=== PATIENT | male | born 1975 | race Caucasian/White ===

== ENCOUNTER 2024-01-20 15:06 | Outpatient (AMB) | payer OTHER, SELFPAY ==
--- NOTE | 2024-01-20 15:07 | MHC.OFFVIS ---
Vital Signs 01/20/24 15:19 Weight 178 lb BP 130/85 Blood Pressure Location Rt brachial Position Sitting Pulse 84 Intake Visit Reasons: Gallstone Intake Note: This patient was referred by for an assessment for gallstones. Pt c/o; reports no complaints. 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 You do have his records show that he had an ultrasound of the abdomen in July,. He is uncertain as to the reason why this was done. This showed cholelithiasis at that time. He says he really never had any significant right upper quadrant pain. He says that he did have epigastric pain and lower sternal pain last September, while he was in [place]. He says that this may have happened after a very heavy meal. He says he went to the ER that time. He does not think he had an ultrasound then. He states that he still does not think he has right upper quadrant pain. He does not seem to have any GI complaints There are no imaging studies available here at [facility]. [facility], [facility] Medical History Gallstones Surgical History History of back surgery Social History Alcohol intake: never Patient Tobacco Use Status: Never used Tobacco Review of Systems Const Denies chills and Denies fever(s) Card Denies chest pain, Denies dyspnea and Denies dyspnea on exertion Resp Denies cough, Denies dyspnea and Denies dyspnea on exertion GI Denies hematochezia and Denies change in bowel habits Denies hematuria and Denies difficulty urinating Musc Denies back pain and Denies limited range of motion Neuro Denies focal weakness and Denies convulsions Psych Denies depression and Denies mood swings Physical Exam Const General: comfortable and no acute distress Orientation/consciousness: patient oriented x3 Neck Neck: Yes no lymphadenopathy Resp Auscultation: clear to auscultation bilaterally Cardio Rhythm: regular rhythm GI Palpation (GI): Soft to palpation, nontender and no guarding Neuro General: patient oriented x3 Assessment & Plan Assessment & Plan (1) Gallstones: Code(s): K80.20 - Calculus of gallbladder without cholecystitis without obstruction Category: Medical Plan: He has gallstones on a previous abdominal ultrasound July, in [place]. This was described as ?incidental? on the report. I will repeat his ultrasound although it does not appear that he has significant symptoms at this time. He denies any right upper quadrant pain but does describe episode of epigastric pain while in [place] after a heavy meal. I did explain to him the technique of laparoscopic cholecystectomy and possible open cholecystectomy. I discussed the risks including but not limited to bleeding, infections, injury to other organs including bowel, liver and the bile duct, retained stones, bile leak, as well as the benefits and alternatives. I will see him in the office after his ultrasound and review his options if he does have gallstones. He is comfortable with the plan. Orders: Orders abdomen limited Today K80.20 - Calculus of gallbladder without cholecystitis without obstruction
[2024-01-20 15:19] VITALS: BP 130/85; PULSE 84
== END 2024-01-20 15:35 | disposition home or self-care (01) ==
LOC: HO.HGS 15:06
PROVIDERS: PCP Pediatrics; Visit Provider Surgery
DX: K80.20 Calculus of gallbladder without cholecystitis without obstruction (principal)
CPT/HCPCS: 99203

== ENCOUNTER → 2024-01-20 15:06 | Outpatient (BNVA) | payer OTHER, SELFPAY | PROVIDERS: PCP Pediatrics; Visit Provider Surgery | DX: K80.20 Calculus of gallbladder without cholecystitis without obstruction (principal) | CPT/HCPCS: 99202 ==

== ENCOUNTER 2024-02-14 08:53 | Outpatient (REF) | payer OTHER, SELFPAY ==
--- NOTE | ~2024-02-14 | US_ITS ---
EXAMINATION: US ABDOMEN LIMITED CLINICAL INFORMATION: Calculus of gallbladder without cholecystitis without obstruction. COMPARISON: None available. TECHNIQUE: Real-time imaging of the right upper quadrant abdominal viscera. FINDINGS: PANCREAS: The pancreas appears unremarkable, without masses or ductal dilatation, with the exception of the tail which is obscured by bowel gas. LIVER: The liver is normal in size. The liver contour is normal. There is mildly increased liver parenchymal echogenicity suggesting hepatic steatosis. No focal hepatic lesion. There is no intrahepatic biliary duct dilatation seen. GALLBLADDER: The gallbladder is physiologically distended. Multiple mobile gallstones are present. No evidence of gallbladder wall thickening or pericholecystic fluid. Hendrix's sign is negative. COMMON BILE DUCT: Normal in caliber measuring 0.3 cm in diameter. RIGHT KIDNEY: Normal. No hydronephrosis. No renal calculi or focal parenchymal lesions. The kidney measures 10.2 cm in maximum dimension. FREE FLUID: None. US/US abdomen limited IMPRESSION: 1. Cholelithiasis without evidence of cholecystitis. 2. Mild hepatic steatosis.
== END 2024-02-14 08:54 | disposition home or self-care (01) ==
LOC: HO.US 08:53
PROVIDERS: PCP Pediatrics; Visit Provider Surgery
DX: K80.20 Calculus of gallbladder without cholecystitis without obstruction (principal)
CPT/HCPCS: 76705

== ENCOUNTER 2024-03-05 15:55 | Outpatient (AMB) | payer OTHER, SELFPAY ==
--- NOTE | 2024-03-05 15:58 | MHC.OFFVIS ---
Intake Visit Reasons: US results Intake Note: This patient presents for a follow-up assessment for Ultrasound results. Patient c/o; reports no complaints. Roustabout Hand Required: No Accompanied by: Self / Same As Patient Allergies acetaminophen [From Vicodin] Allergy (Severe, Verified 03/05/24 15:59) Unknown hydrocodone [From Vicodin] Allergy (Severe, Verified 03/05/24 15:59) Unknown ibuprofen Allergy (Severe, Verified 03/05/24 15:59) Unknown percocet Allergy (Severe, Uncoded 03/05/24 15:59) Unknown HPI HPI US results: Details: 48-year-old male who I had seen last month for gallstones. His records show that he had an ultrasound of the abdomen in July,. He is uncertain as to the reason why this was done. This showed cholelithiasis at that time. He says he really never had any significant right upper quadrant pain. He says that he did have epigastric pain and lower sternal pain last September, while he was in [place]. He says that this may have happened after a very heavy meal. He says he went to the ER that time. He does not think he had an ultrasound then. He does not seem to have any GI complaints I had sent him for an ultrasound here in [place] and he is coming today to discuss the findings. He says he really has had no episode of right upper quadrant pain. [facility] Medical History Gallstones Surgical History History of back surgery Social History Alcohol intake: never Patient Tobacco Use Status: Never used Tobacco Review of Systems Const Denies chills and Denies fever(s) Card Denies chest pain, Denies dyspnea and Denies dyspnea on exertion Resp Denies cough, Denies dyspnea and Denies dyspnea on exertion GI Denies hematochezia and Denies change in bowel habits Denies hematuria and Denies difficulty urinating Musc Denies back pain and Denies limited range of motion Neuro Denies focal weakness and Denies convulsions Psych Denies depression and Denies mood swings Physical Exam Const General: comfortable and no acute distress Orientation/consciousness: patient oriented x3 Neck Neck: Yes no lymphadenopathy Resp Auscultation: clear to auscultation bilaterally Cardio Rhythm: regular rhythm GI Palpation (GI): Soft to palpation, nontender and no guarding Neuro General: patient oriented x3 Assessment & Plan Assessment & Plan (1) Gallstones: Code(s): K80.20 - Calculus of gallbladder without cholecystitis without obstruction Category: Medical Plan: His ultrasound does show multiple mobile gallstones without cholecystitis Again, I reviewed with him the option of proceeding with cholecystectomy. I discussed the technique of laparoscopic cholecystectomy and possible conversion to open cholecystectomy. I reviewed the risks including but not limited to bleeding, infections, injury to other organs including bowel, liver, bile ducts, bile leak, retained stones, as well as the benefits and alternatives. I explained to him what to expect postoperatively He does state again that he does not feel that he has had symptoms like right upper quadrant pain or tenderness. He was like to hold off on cholecystectomy for now. He said he will her himself closely and will come back to the office once he feels he has symptoms. He understands the small risks for acute cholecystitis. Coding Level of Care Code Est Pt Level 3 (68994) Diagnoses Gallstones K80.20
== END 2024-03-05 16:07 | disposition home or self-care (01) ==
PROVIDERS: PCP Pediatrics; Visit Provider Surgery
DX: K80.20 Calculus of gallbladder without cholecystitis without obstruction (principal)
CPT/HCPCS: 99213

== ENCOUNTER → 2024-03-05 15:55 | Outpatient (BNVA) | payer OTHER, SELFPAY | PROVIDERS: PCP Pediatrics; Visit Provider Surgery | DX: K80.20 Calculus of gallbladder without cholecystitis without obstruction (principal) | CPT/HCPCS: 99212 ==

== ENCOUNTER 2024-08-12 15:09 | Outpatient (AMB) | payer OTHER, SELFPAY ==
--- NOTE | 2024-08-12 15:19 | MHC.OFFVIS ---
Vital Signs 08/12/24 15:26 Height 5 ft 3 in Weight 178 lb BMI 31.5 Intake Visit Reasons: re-discuss cholecystectomy Intake Note: This patient presents to re-discuss cholecystectomy. Pt c/o; reports he had a GB attack on June and went to [facility] ER. Reports nausea. Reports no changes in bowel habits. 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 I had seen him earlier for his gallstones but he says that he has had no symptoms with this. He denies any right upper quadrant pain. He however went to the ER in [facility] 2 weeks ago because of what he described as epigastric pain. He on ultrasound there showing gallstones without cholecystitis. He said initially that they were recommending cholecystectomy but he was discharged from the ER He has had no episodes of abdominal pain since that time. He has good oral intake. He says he feels well overall. He says he is not certain whether his symptoms are secondary to his gallstones as he says he was told he had a hiatal hernia as well. [facility] Medical History Epigastric pain Gallstones Surgical History History of back surgery Social History Alcohol intake: never Patient Tobacco Use Status: Never used Tobacco Review of Systems Const Denies chills and Denies fever(s) Card Denies chest pain, Denies dyspnea and Denies dyspnea on exertion Resp Denies cough, Denies dyspnea and Denies dyspnea on exertion GI Denies hematochezia and Denies change in bowel habits Denies hematuria and Denies difficulty urinating Musc Denies back pain and Denies limited range of motion Neuro Denies focal weakness and Denies convulsions Psych Denies depression and Denies mood swings Physical Exam Vital Signs: BMI result Body Mass Index 31.5 Const General: comfortable and no acute distress Orientation/consciousness: patient oriented x3 Neck Neck: Yes no lymphadenopathy Resp Auscultation: clear to auscultation bilaterally Cardio Rhythm: regular rhythm GI Palpation (GI): Soft to palpation, nontender and no guarding Neuro General: patient oriented x3 Assessment & Plan Assessment & Plan (1) Epigastric pain: Code(s): R10.13 - Epigastric pain Category: Medical Plan: He has known gallstones. He says he is not convinced that his epigastric pain from 2 weeks ago was because of his gallstones. He denies any right upper quadrant pain. I have reviewed his ultrasound from [facility] at that time and this shows gallstones without cholecystitis I will order for a CAT scan to rule out any other pathology. He is hesitant to proceed with cholecystectomy at this time I will discuss his CAT scan results with him. He understands the plan and is comfortable with this. He has was with him during the visit. Orders: Orders Creatinine Today R10.13 - Epigastric pain CT abdomen pelvis w IV con Today R10.13 - Epigastric pain Blood Urea Nitrogen Today R10.13 - Epigastric pain Coding Level of Care Code Est Pt Level 3 (28095) Diagnoses Epigastric pain R10.13
[2024-08-12 15:26] VITALS: BMI 31.5
== END 2024-08-12 15:58 | disposition home or self-care (01) ==
PROVIDERS: PCP Pediatrics; Visit Provider Surgery
DX: R10.13 Epigastric pain (principal)
CPT/HCPCS: 99213

== ENCOUNTER 2024-08-12 15:09 | Outpatient (REF) | payer OTHER, SELFPAY ==
[2024-08-12 17:30] LABS: Blood Urea Nitrogen 16 mg/dL (9-16); Estimated Glomerular Filt Rate > 60
== END 2024-08-12 15:10 | disposition home or self-care (01) ==
LOC: HO.LAB 15:09
PROVIDERS: PCP Pediatrics; Visit Provider Surgery
DX: R10.13 Epigastric pain (principal)
CPT/HCPCS: 36415; 82565; 84520; 99212

== ENCOUNTER 2024-10-09 07:49 | Outpatient (REF) | payer OTHER, SELFPAY ==
--- NOTE | ~2024-10-09 | CT_ITS ---
EXAMINATION: CT ABDOMEN PELVIS WITH IV CONTRAST HISTORY: R10.13 - Epigastric pain COMPARISON: Correlation is made with an abdominal ultrasound dated 02/14/2024. TECHNIQUE: CT scan of the abdomen and pelvis was performed following administration of 85 mL Omnipaque 350 using standard departmental protocol. Coronal and sagittal reformatted images were generated and reviewed. Oral contrast material was not administered at the request of the referring physician. This CT exam was performed with one or more of the following dose reduction techniques: automated exposure control, adjustment of the mA and/or kV according to patient size, use of iterative reconstruction technique. DLP: 368 mGy-cm FINDINGS: LOWER CHEST: The visualized lung bases are clear. There is no pleural effusion. CARDIOVASCULATURE: The heart is normal in size. There is no pericardial effusion. LIVER: The liver is normal in size and contour. No liver mass is identified. The hepatic and portal veins are patent. GALLBLADDER / BILE DUCTS: There is cholelithiasis. There is no intra or extrahepatic biliary ductal dilatation. SPLEEN: The spleen is normal in size. No focal splenic lesion is identified. PANCREAS: The pancreas is unremarkable in appearance. ADRENAL GLANDS: Within normal limits. KIDNEYS/RETROPERITONEUM: No renal calculi are identified. There is no hydronephrosis. No renal masses are identified. LYMPH NODES: No abdominal or pelvic lymphadenopathy. VASCULATURE: The abdominal aorta is normal in caliber. MESENTERY/PERITONEUM: No free fluid. No masses. There is no free intraperitoneal gas. STOMACH: The stomach is collapsed, limiting evaluation. SMALL BOWEL: The small bowel is normal in caliber. COLON: There is diverticulosis of the descending and sigmoid colon, without evidence of diverticulitis. APPENDIX: Normal. URINARY BLADDER/PELVIC ORGANS: The urinary bladder is unremarkable. The prostate is normal in size. BONES / SOFT TISSUES: No suspicious bony or soft tissue abnormalities. CT/CT abdomen pelvis w IV con IMPRESSION: Cholelithiasis. Diverticulosis of the descending and sigmoid colon without evidence of diverticulitis. Otherwise contrast-enhanced CT of the abdomen and pelvis. Electronically signed by: Denis Live MD 10/12/2024 02:04 PM [facility]
[2024-10-09 09:00] LABS: GFR POC > 60
[2024-10-09] MEDS: iohexoL 350 MG/ML 100 ML INFUS..BTL IV (09:09)
== END 2024-10-09 07:50 | disposition home or self-care (01) ==
LOC: HO.CT 07:49
PROVIDERS: PCP Pediatrics; Visit Provider Surgery
DX: R10.13 Epigastric pain (principal)
CPT/HCPCS: 74177; 82565; Q9967

== ENCOUNTER → 2024-10-09 07:51 | Outpatient (BNV) | payer OTHER, SELFPAY | PROVIDERS: PCP Pediatrics; Visit Provider Radiology Diagnostic Radiology | DX: R10.13 Epigastric pain (principal) | CPT/HCPCS: 74177 ==

== ENCOUNTER 2024-10-22 10:36 | Outpatient (AMB) | payer OTHER, SELFPAY ==
[2024-10-22 10:45] VITALS: BMI 31.0
--- NOTE | 2024-10-22 10:45 | A.OFFVIS_ITS ---
Vital Signs 10/22/24 10:45 Height 5 ft 3 in Weight 175 lb BMI 31.0 Intake Visit Reasons: s/p ct abd pel 10/09/24 Intake Note: This patient presents for follow-up for Ct-Scan results. Pt c/o; no new concerns. Clinical Data Associate Required: No Accompanied by: Spouse Allergies acetaminophen [From Vicodin] Allergy (Severe, Verified 10/22/24 10:57) Unknown hydrocodone [From Vicodin] Allergy (Severe, Verified 10/22/24 10:57) Unknown ibuprofen Allergy (Severe, Verified 10/22/24 10:57) Unknown percocet Allergy (Severe, Uncoded 10/22/24 10:57) Unknown Medication List - Last Reconciled 10/22/24 by German Garnica MD No Known Home Meds HPI HPI s/p ct abd pel 10/09/24: Details: He is here for follow-up after CT scan of the abdomen and pelvis. I had sent him for this because of his history of epigastric pain. He does have known gallstones but he always says that he has does not have any right upper quadrant pain He says he has had no further episodes of epigastric pain in the last couple of months . He has good oral intake. COUNTS INCLUDE 234 BEDS AT THE [facility] Medical History Epigastric pain Gallstones Surgical History History of back surgery Social History Alcohol intake: never Patient Tobacco Use Status: Never used Tobacco Review of Systems Const Denies chills and Denies fever(s) Card Denies chest pain, Denies dyspnea and Denies dyspnea on exertion Resp Denies cough, Denies dyspnea and Denies dyspnea on exertion GI Denies hematochezia and Denies change in bowel habits Denies hematuria and Denies difficulty urinating Musc Denies back pain and Denies limited range of motion Neuro Denies focal weakness and Denies convulsions Psych Denies depression and Denies mood swings Physical Exam Vital Signs: BMI result Body Mass Index 31.0 Const General: comfortable and no acute distress Orientation/consciousness: patient oriented x3 Neck Neck: Yes no lymphadenopathy Resp Auscultation: clear to auscultation bilaterally Cardio Rhythm: regular rhythm GI Palpation (GI): Soft to palpation, nontender and no guarding Neuro General: patient oriented x3 Assessment & Plan Assessment & Plan (1) Gallstones: Code(s): K80.20 - Calculus of gallbladder without cholecystitis without obstruction Category: Medical Plan: I have reviewed his CAT scan and this does not reveal any other pathology except for gallstones I did tell him that his epigastric pain may be secondary to his gallstones. I therefore offered the option proceeding with cholecystectomy. I explained the technique of laparoscopic cholecystectomy. I reviewed the risks including but not limited to bleeding, infections, injury to other organs, as well as the benefits and alternatives. He is very hesitant to undergo surgery at this time as he is not convinced that his symptoms were secondary to his gallstones. He would like to think about this. He says that he will come back to the office to review this once he decides to proceed with surgery. His was with him during the visit Coding Level of Care Code Est Pt Level 3 (53244) Diagnoses Gallstones K80.20
== END 2024-10-22 11:15 | disposition home or self-care (01) ==
PROVIDERS: PCP Pediatrics; Visit Provider Surgery
DX: K80.20 Calculus of gallbladder without cholecystitis without obstruction (principal)
CPT/HCPCS: 99213

== ENCOUNTER → 2024-10-22 10:36 | Outpatient (BNVA) | payer OTHER, SELFPAY | PROVIDERS: PCP Pediatrics; Visit Provider Surgery | DX: K80.20 Calculus of gallbladder without cholecystitis without obstruction (principal) | CPT/HCPCS: 99212 ==